=== PATIENT | female | born 1955 | race Caucasian/White ===

== ENCOUNTER → 2021-10-13 13:06 | Outpatient (CLI) | payer OTHER, SELFPAY ==
[2021-10-13 16:29] LABS: COVID19 -Nasal RAPID Negative (Negative)
== END ==
PROVIDERS: Visit Provider Family Medicine Sleep Medicine
DX: Z20.822 Contact with and (suspected) exposure to COVID-19 (principal)
CPT/HCPCS: 87635; C9803

== ENCOUNTER 2021-10-15 13:15 | Day surgery (SDC) | payer OTHER, SELFPAY ==
[2021-10-08 12:44] VITALS: BMI 24.7
[2021-10-15] VITALS (10 sets, daily range): BP systolic 158–190; BP diastolic 65–81; PULSE 60–98; RESP 10–17; TEMP 35.6–37.2; O2SAT 91–100; BMI 24.7
--- NOTE | 2021-10-15 06:00 | DI.RAD.S_ITS ---
PROCEDURE: XR KNEE LT 1TO2V INDICATIONS: prosthesis placement TECHNIQUE: 2 view(s) of the knee acquired. COMPARISON: None. FINDINGS: Bones: Patient is status post knee joint arthroplasty. Hardware components are in expected positions. Visualized bony structures are intact. Soft tissues: Overlying postoperative changes are noted. IMPRESSION: Postsurgical changes from left total knee arthroplasty with anatomic left knee alignment. Dictated by: Elvis Alves M.D. on 10/16/2021 at 9:42 Approved by: Elvis Alves M.D. on 10/16/2021 at 9:43
[2021-10-15] MEDS: LACTATED RINGERS 1,000 ML 100 ML IV ×3 (14:14→20:38)
[2021-10-15] MEDS: CELECOXIB 200 MG CAPSULE PO (14:33)
[2021-10-15] MEDS: ACETAMINOPHEN 325 MG TABLET 975 MG PO (14:33)
[2021-10-15] MEDS: PREGABALIN 75 MG CAPSULE PO (14:35)
--- NOTE | 2021-10-15 15:52 | PM.PREOP ---
Pre-operative Note COVID-19 COVID-19 status: Negative Result date/Date tested (Pos, Neg/Pending): 10/13/21 Interval Note History & Physical reviewed/Exam performed by Physician: Yes Changes to H&P: No
[2021-10-15] MEDS: CEFAZOLIN 2 GM/20 ML SYRINGE IV (16:25)
[2021-10-15] MEDS: TRANEXAMIC ACID 1,000 MG VIAL 1000 MG INJ ×2 (16:35→17:31)
--- NOTE | 2021-10-15 16:42 | SUR.OPER ---
Supine on padded OR bed. Pillow under head, arms secured on padded armboards <90 degree abduction. Safety belt across torso. Non-operative leg secured with tape over blanket over lower leg. Operative leg secured in DeMayo/Tim/Nathe positioner. Foam padded brace at thigh of operative leg. Positioning directed and approved by surgeon
[2021-10-15] MEDS: BUPIVACAINE 0.25% (PF) 60 ML, EPINEPHrine 0.3 MG INJ (16:48)
[2021-10-15] MEDS: BUPIVACAINE LIPOSOME 266 MG/20 ML VIAL INJ (16:49)
[2021-10-15] MEDS: MORPHINE 4 MG/ML INJ INJ (16:55)
--- NOTE | 2021-10-15 17:53 | PM.OP.1 ---
Operative Date/Time/Diagnoses Date of procedure: 10/15/21 Time of procedure: 17:53 Pre-op diagnosis: Left knee osteoarthritis Post-op diagnosis: same Procedure & Clinicians Procedure: Left total knee replacement Same procedure as scheduled: Yes Indications: The patient has had progressively worsening left knee pain with radiographic changes consistent with arthritis. Non-operative management has failed and the patient has requested total knee replacement. The risks, benefits and alternatives to surgery were discussed with the patient prior to proceeding. Risks discussed included, but were not limited to, failure to relieve pain, stiffness, infection, nerve damage, deep venous thrombosis, pulmonary embolism, stroke, coma, heart attack, permanent paralysis and , as well as the potential need for eventual revision of the prosthetic. Surgeon: Jemal Stewart Combination Machine Tender: Rogelio Larson Click Yes if Unassisted: No Anesthesia Type: General, Spinal and Local Operative Notes Findings: Severe tricompartmental osteoarthritis with soft bone Closure Type: primary Specimen(s): none sent Prosthetic devices, grafts, tissues, transplants, or devices: Implants used in this procedure were manufactured by the [employer] and included the BCS II Journey total knee replacement with a size 6 left Oxinium femoral component, a size 5 left non porous tibial base plate, a 10 mm cross-linked polyethylene tibial insert and a 29 mm oval Funmi II patella. Applied: implant(s) Estimated Blood Loss (mL): 25 Blood products transfused: none Tourniquet time (min): 52 Procedure in detail: The patient was seen in the pre-operative area, where the left knee was identified as the operative site and this was marked with my initials. The patient received pre-operative antibiotics, and was taken to the operating room and placed on the operative table in the supine position. After satisfactory anesthesia, a autocad out was performed. The left leg was encircled with a tourniquet about the proximal thigh, and the leg was prepared from the toes to the tourniquet with ChloroPrep in the usual fashion and draped through sterile drapes. The leg was elevated and exsanguinated with Eschmark bandage and the tourniquet inflated to 250 mmHg pressure. The knee was approached through an approximately 18 cm incision centered over the patella and carried into the knee through a medial parapatellar arthrotomy. The anterior osteophytes and soft tissues were removed. The rotational landmarks of [place]'s line and the transepicondylar axis were marked on the femur with electrocautery, and intramedullary guide holes for the femur and tibia were created. The distal femoral cut was made in 6 degrees of valgus using the intramedullary guide at the primary cut setting. The proximal tibial cut was then made using the intramedullary guide, taking 9 mm of bone off the less involved side. The extension gap was checked and the rotation of the femoral component confirmed with the gap balancing blocks. The anterior, posterior and chamfer cuts were then made. The posterior osteophytes and soft tissues were then removed. The posterior capsule was injected with part of a mixture of 60 ml 0.25% Marcaine mixed with 20 ml Exparel and 4 mg of morphine for post-operative pain control. The remainder of this mixture was injected into the capsule and subcutaneous tissues during cement curing. The tibia was prepared with the rotation set by an extra medullary guide. Trial tibial and femoral components were then placed and the intercondylar notch cut through the femoral trial. Range of motion was 0-140 degrees, with good stability throughout the range. The patella was then cut to accommodate the patellar prosthetic. There was no need for a lateral release. The trials were then removed, and the femoral hole plugged with a bone plug. The bone was prepared with pulsatile lavage, and dried with a sponge. Cement was applied and the final prosthetics placed. Excess cement was removed during and after cement curing. After confirming there was no extruded cement posteriorly, the final tibial insert was placed. The knee was copiously irrigated and the tourniquet deflated. Hemostasis was obtained. The capsule was closed with interrupted # 2 polyester sutures. The subcutaneous layer was closed with 3-0 Vicryl, and the skin with a running 3-0 V-Lock suture and Dermabond. An Aquacel Ag dressing was applied and the patient was taken to recovery having tolerated the procedure well. Complications: none Post-operative Condition: stable Disposition: PACU Plan for aftercare: The patient will be maintained on a standard total knee replacement protocol with weight bearing as tolerated. The patient will receive aspirin and sequential compression devices for DVT prophylaxis. The patient will be discharged home when safe for the home environment.
[2021-10-15] MEDS: fentaNYL 100 MCG/2 ML INJ IV ×2 (18:14→18:33)
[2021-10-15] MEDS: OXYCODONE IR 5 MG TABLET PO ×2 (18:27→19:12)
[2021-10-15] MEDS: ACETAMINOPHEN 325 MG TABLET 650 MG PO (20:46)
[2021-10-15] MEDS: DOCUSATE 100 MG CAPSULE PO (20:46)
[2021-10-15] MEDS: ASPIRIN EC 81 MG TABLET PO (20:46)
[2021-10-15] MEDS: ATORVASTATIN 20 MG TABLET 10 MG PO (20:47)
[2021-10-15] MEDS: MORPHINE ER 30 MG TABLET PO (20:47)
[2021-10-15] MEDS: OXYCODONE IR 10 MG TABLET PO (22:32)
[2021-10-15] MEDS: IBUPROFEN 400 MG TABLET PO (22:32)
--- NOTE | 2021-10-15 23:53 | PC.NURSE ---
1925 Pt. admitted from PACU, awake, alert & oriented x4. LLE still numb when admitted VS WNL. Denies any nausea requested crackers & coffee pain level 5-7 had been medicated in PACU with Fentanyl & oxycodone. oriented to her room, showed her how to use her call light, TV & bed controls. Spouse came in arouind 2100, brought her cell phone, walker & glasses. Spouse staying with patient & sleeping by the bed. Instructed not to get OOB with out any assistance. Will continue POC & monitor.
[2021-10-16 00:02] VITALS: BP 156/68; PULSE 74; RESP 16; TEMP 37; O2SAT 97
[2021-10-16] MEDS: OXYCODONE IR 10 MG TABLET PO ×3 (01:20→12:00)
[2021-10-16] MEDS: hydrOXYzine pamoate 25 MG CAPSULE PO ×2 (01:20→09:00)
--- NOTE | 2021-10-16 01:31 | PC.NURSE ---
C/O pain level 8/10 to lt. knee, burning sensation & tightness to incision site. Medicated with 10 mg. of Oxycodone & 25 mg. of Vistaril PO. B/P 144/73 & HR. 78. will cont. POC & monitor.
[2021-10-16] MEDS: ACETAMINOPHEN 325 MG TABLET 650 MG PO ×3 (02:42→14:25)
[2021-10-16] MEDS: HYDROMORPHONE 2 MG TABLET PO (05:15)
[2021-10-16] MEDS: IBUPROFEN 400 MG TABLET PO ×2 (05:15→13:01)
[2021-10-16 05:16] VITALS: BP 131/67; PULSE 66; RESP 16; TEMP 36.6; O2SAT 95
--- NOTE | 2021-10-16 05:20 | CM.MNRNOTE ---
Pt. reported the oxycodone did not really help that much requested to take Dilaudid PO 2 mg. admin. Will monitor.
[2021-10-16] MEDS: SODIUM CHLORIDE 0.9% FLUSH 10 ML IV ×2 (05:29→08:58)
[2021-10-16] MEDS: PANTOPRAZOLE DR 40 MG TABLET PO (05:29)
[2021-10-16 06:39] LABS: Hematocrit 27.1 % (36-46); Hemoglobin 9.3 g/dL (12.0-16.0)
--- NOTE | 2021-10-16 07:51 | PM.DS.1 ---
History of Present Illness History of Present Illness Date Patient Seen: 10/16/21 Time Patient Seen: 07:51 Chief complaint: Knee pain Narrative: 66-year-old female resting comfortably in bed in no apparent distress. Patient currently having mild discomfort after her pain medicine this morning. States her leg feels heavy. Denies fever chills. No nausea or vomiting. Patient has assistance at home. Discharge Providers Provider Discharge Date: 10/16/21 Primary care physician: Yrn Mancera MD Consults: 10/15/21 19:15 Consult to Discharge Planning Routine Comment: Consult to Physical Therapy Evaluate & Treat Comment: Physician Instructions: postop TKA protocol Discharge provider: Rogelio Larson PA-C Summary Hospital Course Discharge Diagnosis: Left knee osteoarthritis Hospital Course: Left total knee replacement Same procedure as scheduled: Yes Indications: The patient has had progressively worsening left knee pain with radiographic changes consistent with arthritis. Non-operative management has failed and the patient has requested total knee replacement. The risks, benefits and alternatives to surgery were discussed with the patient prior to proceeding. Risks discussed included, but were not limited to, failure to relieve pain, stiffness, infection, nerve damage, deep venous thrombosis, pulmonary embolism, stroke, coma, heart attack, permanent paralysis and , as well as the potential need for eventual revision of the prosthetic. Surgeon: Jemal Stewart Lead Retail Sales Associate: Rogelio Larson Click Yes if Unassisted: No Anesthesia Type: General, Spinal and Local Operative Notes Findings: Severe tricompartmental osteoarthritis with soft bone Closure Type: primary Specimen(s): none sent Prosthetic devices, grafts, tissues, transplants, or devices: Implants used in this procedure were manufactured by the [employer] and included the BCS II Journey total knee replacement with a size 6 left Oxinium femoral component, a size 5 left non porous tibial base plate, a 10 mm cross-linked polyethylene tibial insert and a 29 mm oval Funmi II patella. Applied: implant(s) Estimated Blood Loss (mL): 25 Blood products transfused: none Tourniquet time (min): 52 Patient admitted to the hospital for left total knee replacement. Patient consented to the same. Patient underwent left total knee replacement on October 15, 2021. Patient back in her room recovering well as in stable condition. Patient will mobilize with physical therapy. Discharge home today after physical therapy if safe for home environment. Exam Vital Signs (past 8 hours): - 10/16/21 00:02 10/16/21 05:16 Temperature 98.6 F 98 F Pulse Rate 74 66 Respiratory Rate 16 16 Blood Pressure 156/68 H 131/67 Pulse Oximetry 97 95 Oxygen Delivery Method Room Air Oxygen Flow Rate 2 Narrative Exam Narrative: 58-year-old female resting comfortably in bed in no apparent distress. at bedside. Dressing is Clean, dry, intact.. Motor functions intact distal left lower extremity. Sensation grossly intact to light touch left lower extremity. Left leg is warm and dry. Objective Labs Result Diagrams: 10/16/21 06:09 Labs: Laboratory Results - last 24 hr 10/16/21 06:09 Hgb 9.3 L Hct 27.1 L PFSH Medical History Anxiety Arthritis COVID-19 virus infection (03/2021) CVA (cerebral vascular accident) (12/26/13) Easy bruisability Fibromyalgia GERD (gastroesophageal reflux disease) H/O coronary angiogram (12/26/13) HLD (hyperlipidemia) HTN (hypertension) Insomnia Leaky heart valve Osteoarthritis RLS (restless legs syndrome) Surgical History History of partial hysterectomy (2012) Hx of cholecystectomy (1993) Social History household members: spouse Smoking Status: Former smoker alcohol intake: former Discharge Assessment & Plan Assessment and Plan Assessment: Patient progressing as expected status post left total knee replacement Plan of Treatment: Patient will be maintained on standard total knee protocol. Mobilize with physical therapy Multimodal pain management Discharge home today in stable condition. Discharge Plan Discharge Plan Patient Disposition: Home Discharge orders & Medications Discharge Orders: Discharge (Order); Ordered 10/16/21 Ordered By: Rogelio Larson Prescriptions: New acetaminophen 325 mg Tablet 650 mg PO Q6H Qty: 60 0RF aspirin 81 mg Tablet,Delayed Release (Dr/Ec) 81 mg PO BID Qty: 60 0RF polyethylene glycol 3350 17 gram Powder In Packet 17 g PO DAILY PRN (Reason: Constipation) Qty: 14 0RF ibuprofen 400 mg Tablet 400 mg PO Q8HR Qty: 60 0RF hydroxyzine pamoate 25 mg Capsule 25 mg PO Q6HR PRN (Reason: Nausea) Qty: 30 0RF oxycodone 10 mg Tablet 10 mg PO Q3HR PRN (Reason: Pain, Severe (7-10)) Qty: 60 0RF Continued lisinopril-hydrochlorothiazide 20-12.5 mg Tablet 1 tab PO DAILY 0RF simvastatin 20 mg Tablet 20 mg PO BEDTIME 0RF lansoprazole 30 mg Capsule,Delayed Release(Dr/Ec) 30 mg PO DAILY 0RF paroxetine HCl [Paxil] 40 mg Tablet 40 mg PO DAILY 0RF morphine 30 mg Capsule, Er Multiphase 24 Hr 30 mg PO BID 0RF eszopiclone [Lunesta] 3 mg Tablet 3 mg PO BEDTIME 0RF Discontinued hydrocodone-acetaminophen 10-325 mg Tablet 1 tab PO QD-BID PRN (Reason: Pain) 0RF aspirin [Aspir-81] 81 mg Tablet,Delayed Release (Dr/Ec) 81 mg PO DAILY 0RF meloxicam 7.5 mg Tablet 7.5 mg PO DAILY 0RF Follow up/Referrals: Yrn Mancera MD [Primary Care Provider] - Jemal Stewart MD [Physician] - As previously scheduled (Follow up with Dr Stewart on 10/30/2021 @ 1:00 pm at [facility] in [place].) Diet/Activity/Treatments Diet: Diet as Tolerated Activity: Weight-bearing as tolerated Cold/Heat Therapy: Apply ice to knee as needed Skin/Wound/Dressing Care Report to your healthcare provider any signs of infection, such as:: chills, fever, night sweats, unusual drainage and unusual redness Dressing: Keep dressing clean and dry, may remove Naresh wrap in 24-48 hours, leave dressing in place Visit Report/Discharge Packet Instructions: DI for Knee Replacement Stand Alone Forms: Surgery Discharge Discharge Data Primary Care Provider: Yrn Mancera Attending Provider: Jemal Stewart Quality VTE Deep Vein Thrombosis/Pulmonary Embolism Present on Admission: No
[2021-10-16] MEDS: ASPIRIN EC 81 MG TABLET PO (08:56)
[2021-10-16 08:57] VITALS: BP 148/63; PULSE 75
[2021-10-16] MEDS: MELOXICAM 7.5 MG TABLET PO (08:57)
[2021-10-16] MEDS: MORPHINE ER 30 MG TABLET PO (08:57)
[2021-10-16] MEDS: lisinopriL 20 MG TABLET PO (08:57)
[2021-10-16] MEDS: PARoxetine 20 MG TABLET 40 MG PO (08:57)
[2021-10-16] MEDS: DOCUSATE 100 MG CAPSULE PO (08:58)
[2021-10-16] MEDS: hydroCHLOROthiazide 25 MG TABLET 12.5 MG PO (08:58)
--- NOTE | 2021-10-16 09:21 | CM.DANOTE ---
Initial DCP Assessment Note Pt is a 66 yo female, resident of [place], now POD#1 from Left knee surgery by Dr Stewart PCP: Yrn Mancera Payer: [facility] Reviewed chart; DC order in place this morning, pending therapy evals. Patient has planned for home w/spouse to assist No needs expected from DC planning team although will remain available today; awaiting recs from therapy team TON Bryant Discharge Planning/Care Management CM Discharge Assessment Start: 10/16/21 09:16 Freq: Status: Active Protocol: Document 10/16/21 09:16 RICK (Rec: 10/16/21 09:21 RICK [id number]) Discharge Planning Assessment Assigned Manager Battery TON Joya DPOA/Assigned Designee Name Tomás () Contact Information [phone] or cell: Advance Directives? Yes Advance Directives on File No History Provided By Patient,Medical Record Prior Living Arrangements Mobile home Household Members spouse Type of transporation used prior to Relies on Others admit Willing to Return to Facility? No Independent with ADL's Yes: Poor activity tolerance Is patient alert and oriented? Yes Needs Assistance With Home Chores / Shopping Comment Awaiting therapy eval. DC order placed by Ortho PA Discharge Plan Home Transportation Arrangement Family Referrals Initiated None needed Additional Comment Awaiting therapy eval this morning
--- NOTE | 2021-10-16 10:52 | PT.IIE ---
Current Diagnoses Unilateral primary osteoarthritis, left knee (10/15/21) Surgery Performed Operation Date: 10/15/21 15:00 Actual Procedures p Total Knee Arthroplasty(Left) - Jemal Stewart MD Medical History (Last Reviewed 10/16/21 @ 07:53 by Rogelio Larson PA-C) Anxiety Arthritis COVID-19 virus infection (03/2021) CVA (cerebral vascular accident) (12/26/13) Easy bruisability Fibromyalgia GERD (gastroesophageal reflux disease) H/O coronary angiogram (12/26/13) HLD (hyperlipidemia) HTN (hypertension) Insomnia Leaky heart valve Osteoarthritis RLS (restless legs syndrome) Physical Therapy Inpatient Evaluation/Re-Eval M1 PT/OT-IP Prior Functional Status Start: 10/16/21 13:00 Freq: NEEDED Status: Active Protocol: Document 10/16/21 10:52 AB (Rec: 10/16/21 13:11 AB [id number]) Medical Review Prior Functional Status Medical History Reviewed Yes Communication able to make needs known Mobility and Gait pt stated that she is independent with all mobilities and ambulation without AD Social History Household Members spouse Living Arrangements Mobile home Number of Floors (Floors) One Floor Number of Stairs To Enter/Railing? 5 steps to enter with B rails Home Environment High Toilet,Tub/Shower Doors Home Equipment Front Wheel Walker,Raised Toilet Seat w/Armrests,Shower Seat with Backrest,Hand Held Shower M2 PT-IP Current Condition Start: 10/16/21 13:00 Freq: NEEDED Status: Active Protocol: Document 10/16/21 10:52 AB (Rec: 10/16/21 13:11 AB [email or web address]) Physical Therapy Current Condition Current Condition Evaluation Date 10/16/21 Treatment Diagnosis s/p L TKA; difficulty in walking Onset Date 10/15/21 M3 PT-IP Subjective Start: 10/16/21 13:00 Freq: NEEDED Status: Active Protocol: Document 10/16/21 10:52 AB (Rec: 10/16/21 13:11 AB [email or web address]) Subjective Physical Therapy Visit Type Type Initial Evaluation Visit Start Time 10:52 Visit Stop Time 11:45 Total Visit Minutes 53 Number of MEDIA MONITOR Visits 0 Physical Therapy Visit Comments Patient Comments agreeable to do PT Therapy Pain Assessment Pain When Pain Assessed At Rest Pain Present Pain Present Pain Reported Location left knee Intensity 12 Scale Used Numeric (0 - 10) Pain Management Techniques Modification of Treatment,Re- positioning,Timing of Activity with Medications M4 PT-IP Mobility and Gait Start: 10/16/21 13:00 Freq: NEEDED Status: Active Protocol: Document 10/16/21 10:52 AB (Rec: 10/16/21 13:11 AB [id number]) PT-Bed Mobility Assessment Supine to Sit Supine to Sit Standby Assistance Sit to Supine Sit to Supine Standby Assistance PT-Transfer Assessment Sit to and From Stand Sit to and from Stand Contact Guard Assistance,1 Person Assistance,Use of Upper Extremities Equipment Transfer Assistive Device Gait Belt,Front Wheeled Walker Orthotic/Prosthetic Devices or Brace: No Comments Mobility Comments pt c/o increase pain and nausea. BP: 145/52. spouse in room. spouse stated that the doctor expected more pain due to pt's chronic morphine use prior to surgery and now is just taking oxycodone for pain. pt understands and willing to do PT. completed supine to sit SBA. sit to stand CGA and ambulated in room using fWW ~ 20 ft CGA. caregiver training conducted. educated spouse on how to use safety belt and how to assist pt. spouse was able to put safety belt on and assisted pt with sit to stand and ambulation using FWW CGA. pt completed up/down stairs B rails CGA with spouse assisting. pt assisted back to her room. ambulated from w/ c to bed CGA. completed sit to supine SBA. positioned pt on the bed. call light and table within reach. pt and spouse without any other concerns. Gait Assessment Gait Gait Assistance Required: Contact Guard Assist Distance (Feet) 75 Able to Maintain Weight Bearing Status Yes During Gait Assistive Devices Assistive Device Gait Belt,Front Wheeled Walker Orthotic/Prosthetic Devices or Brace: No Gait Deviations General Gait Pattern Antalgic,Decreased Stride Length,Decreased Feet Clearance Factors Limiting Gait Function Factors Limiting Gait Function Decreased Activity Tolerance, Decreased Strength,Limited Range of Motion,Pain,Poor Balance Stair Climbing Assessment Evaluation Level of Assist On Stairs Contact Guard Assistance Devices Stair Climbing Assistive Devices Left Railing,Right Railing Technique/Endurance Stair Climbing Direction Ascend and Descend Stair Climbing Technique Step to Step Number of Steps Climbed 3 Query Text: Stair Climbing Set # Repetitions (reps) 1 PT-Balance Assessment Sitting Balance and Reactions Static Sitting Balance Ability Good Dynamic Sitting Balance Ability Good Standing Balance and Reactions Static Standing Balance Ability Fair Dynamic Standing Balance Ability Fair Device Used FWW M5 PT-IP Objective Assessments Start: 10/16/21 13:00 Freq: NEEDED Status: Active Protocol: Document 10/16/21 10:52 AB (Rec: 10/16/21 13:11 AB [id number]) Orientation Orientation/Cognition Level of Alertness Alert Orientation Name,Place,Situation Language Function Ability No Deficits Noted Safety Awareness Decreased Safety Awareness Memory Description No Deficits Noted Gross Range of Motion Lower Extremity ROM Impairments L knee flexion: ~ 30 deg Strength Lower Extremity Strength Assessment Left Impaired Hip 4-/5 Knee 3+/5 Coordination Assessment Gross Coordination Gross Coordination WNL Sensation Assessment Sensation Gross Sensation WNL Muscle Tone Muscle Tone WNL Yes M6 PT-IP Treatment Start: 10/16/21 13:00 Freq: NEEDED Status: Active Protocol: Document 10/16/21 10:52 AB (Rec: 10/16/21 13:11 AB [email or web address]) Physical Therapy Treatment Education Education Provided Precautions,Weight Bearing Status,Post-Op Packet,Safety M7 PT-IP Assessment and Plan Start: 10/16/21 13:00 Freq: NEEDED Status: Active Protocol: Document 10/16/21 10:52 AB (Rec: 10/16/21 13:11 AB [email or web address]) PT Summary Assessment and Plan Potential Rehabilitation Potential Good Status of Condition at Evaluation Evolving Summary Impairments Pain,ROM,Strength,Balance, Coordination,Sensation,Tone, Cognition,Bed Mobility, Transfers,Gait,Activity Tolerance Assessment Summary pt requiring CGA with mobility but with c/o increase pain requiring frequent rest breaks in between tasks. caregiver training conducted and spouse was able to assist pt safely. pt plans to go home and has outpt PT set up. Goals Bed Mobility Goal Independent Transfer Goal Independent,Front Wheeled Walker Gait Goal Independent,Front Wheel Walker Gait Distance 200 Other Goals up/down 5 steps B rails SBA Days to Meet Goals 5 Frequency of Treatment Frequency Of Treatment Twice a Day Treatment Plan Physical Therapy Treatment Plan Bed Mobility Training,Transfer Training,Gait Training, Therapeutic Exercise,Balance Retraining,Post Op Education, Discharge Planning,Hot or Cold Pack,Neuromuscular Re-ed, Coordination Retraining,Manual Therapy Weight Bearing Status Weight Bearing Status Weight Bear as Tolerated Allowed Weight Bearing Amount (enter % LLE WBAT or #) (%) Recommendations To Nursing Amount of Assist Needed 1 Person Assist Discharge Recommendations PT Discharge Recommendations Home with Assistance, Outpatient PT Transportation Needs at Discharge Private Vehicle
[2021-10-16 11:00] VITALS: BP 142/60; PULSE 78; RESP 17; O2SAT 95
[2021-10-16] MEDS: ONDANSETRON 4 MG ODT PO (12:00)
[2021-10-16] MEDS: HYDROMORPHONE 0.5 MG INJ 0.2 MG IV (13:39)
--- NOTE | 2021-10-16 14:57 | PC.NURSE ---
Pt is A&Ox4, VSS, afebrile on RA. Aquacell and dressing to L knee C/D/I. She reports her tolerable and baseline level of pain normally is 6-7/10 as she has chronic pain. She reports her pain is well controlled with PRN oxycodone, vesteril and scheduled tylenol and ibuprofen. She declines wanting hydromorphone po because it made her feel too sleepy. She is eating, and up to the bathroom without difficulty. PA at bedside this a.m. clears her for discharge after PT, and she is cleared by PT this afternoon however she reports after her activity pain is increased in her L knee up to 9-10/10. She is medicated with prn oxycodone with fair affect and prior to transport home and dressing she is given 0.2mg IV hydromorphone with good effect she states bringing her pain level back down to 7/10. She and her verbalize understanding of discharge activity, medications, site care, s/sx of infection as well as follow up appointment. She is escorted via w/ch to private vehicle with her at 1500 this afternoon with all of her belongings.
== END 2021-10-16 15:00 | disposition home or self-care (01) ==
LOC: OR 13:20 → AC 13:20
PROVIDERS: PCP Internal Medicine; Referring Provider Orthopaedic Surgery; Visit Provider Orthopaedic Surgery
PROC: 0SRD0JZ Replacement of Left Knee Joint with Synthetic Substitute, Open Approach (ICD-10-PCS; CPT 27447; principal; 2021-10-15 15:00)
DX: M17.12 Unilateral primary osteoarthritis, left knee (principal); M79.7 Fibromyalgia; I10 Essential (primary) hypertension; Z86.73 Personal history of transient ischemic attack (TIA), and cerebral infarction without residual deficits
CPT/HCPCS: 27447; 73560; 85014; 85018; 97162; 97530; C1776; C1713; C9290; J0171; J0690; J1170; J2250; J2270; J2274; J2704; J3010